=== PATIENT | male | born 2000 | race Caucasian/White ===

== ENCOUNTER 2023-11-14 20:57 | Emergency (ER) | payer BC, SELFPAY ==
[2023-11-14 21:06] VITALS: BP 116/78
[2023-11-14] MEDS: ADACEL 0.5 ML IM (21:52)
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
== END 2023-11-14 22:09 | disposition home or self-care (01) ==
LOC: EMR 20:57
PROVIDERS: EMERGENCY PHYSICIAN Emergency Medicine
DX: S81.811A Laceration without foreign body, right lower leg, initial encounter (principal); W27.0XXA Contact with workbench tool, initial encounter; Y93.89 Activity, other specified; Z23 Encounter for immunization
CPT/HCPCS: 12032; 99282; 90471; 90715